=== PATIENT | female | born 1995 | race Caucasian/White ===

== ENCOUNTER 2016-03-21 13:00 | Emergency (ER) | payer OTHER ==
[~2016-03-21] VITALS: Ht 157.5 cm; Wt 65.8 kg
[~2016-03-21 13:00] MED LIST: BIOTCAP2 PO; CALCTAB5 PO
[2016-03-21 13:01] VITALS: BP 124/85; PULSE 89; TEMP 36.8; O2SAT 98; Ht 157.5 cm; Wt 65.8 kg
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
== END 2016-03-21 13:49 | disposition home or self-care (01) ==
LOC: C.EDB 13:01 → C.EDD 13:49
DX: S00.83XA Contusion of other part of head, initial encounter (principal); W22.8XXA Striking against or struck by other objects, initial encounter; Y92.039 Unspecified place in apartment as the place of occurrence of the external cause; J45.909 Unspecified asthma, uncomplicated; Z98.890 Other specified postprocedural states